=== PATIENT | male | born 1995 | race Caucasian/White ===

== ENCOUNTER 2024-03-19 17:59 | Emergency (ER) | payer SELFPAY ==
[~2024-03-19 17:59] MED LIST: Iopamidol-370 76% 500 ML MDV (1 ML CHARGE) ONE
[2024-03-19 19:03] LABS: #Basophils 0.04 10x3/uL (0.0-0.2); %Basophils 0.3 % (0.0-1.0); %Lymphocytes 23.6 % (21.0-51.0); %Monocytes 7.2 % (0.0-10.0); %Neutrophils 67.6 % (42.0-75.0); Hematocrit 45.1 % (42.0-52.0); Hemoglobin 15.8 g/dL (14.0-18.0); Mean Corpuscular Hemoglobin 28.7 pg (27.0-31.0); Mean Corpuscular Volume 81.9 fL (78.0-98.0); Mean Platelet Volume 10.5 fL (7.4-10.4); Platelet Count 221 10x3/uL (130-400); RBC Distribution Width 13.6 % (11.5-14.5); Red Blood Cell (RBC) Count 5.51 mill/uL (4.70-6.10)
[2024-03-19 19:22] LABS: ALT (SGPT) 61 U/L (8-55); AST (SGOT) 28 U/L (5-34); Albumin 4.2 g/dL (3.5-5.0); Alkaline Phosphatase 102 U/L (40-110); Anion Gap 19 mmol/L (10-20); BUN (Urea Nitrogen) 10 mg/dL (8.9-20.6); Bilirubin, Total 1.1 mg/dL (0.2-1.2); Calc. Creatinine Clearance 0 mL/min (70-130); Calcium 9.2 mg/dL (7.8-10.44); Carbon Dioxide 14 mmol/L (22-29); Chloride 110 mmol/L (98-107); Estimated GFR 132; Globulin 3.5 g/dL (2.4-3.5); Glucose 85 mg/dL (70-105); Potassium 3.9 mmol/L (3.5-5.1); Protein, Total 7.7 g/dL (6.0-8.3); Sodium 139 mmol/L (136-145)
[2024-03-19] MEDS ORDERED: diphenhydrAMINE 50 MG/ML VIAL ONE (19:24)
[2024-03-19] MEDS ORDERED: Acetaminophen 500 MG TAB ONE (19:24)
[2024-03-19] MEDS ORDERED: Metoclopramide HCl 10 MG (2 mL) VIAL ONE (19:24)
[2024-03-19] MEDS ORDERED: Magnesium 2 GM/50 ML BAG (IN WATER) ONE (21:36)
[2024-03-19] MEDS ORDERED: Ketorolac Tromethamine 30 MG (1 mL) VIAL ONE (21:38)
[2024-03-19] MEDS ORDERED: Dexamethasone 10 MG/ML VIAL ONE (21:38)
== END 2024-03-19 23:11 | disposition home or self-care (01) ==
LOC: ERS 17:59
DX: G43.909 Migraine, unspecified, not intractable, without status migrainosus (principal); F41.9 Anxiety disorder, unspecified; I10 Essential (primary) hypertension
CPT/HCPCS: 36415; 70496; 80053; 83735; 84443; 85025; 96374; 96375; J1100; J1200; J1885; J2765; J3475; Q9967